=== PATIENT | male | born 1995 | race African-American/Black ===

== ENCOUNTER 2017-12-25 16:14 | Emergency (ER) | payer SELFPAY | END 2017-12-25 16:50 | disposition home or self-care (01) | LOC: ERS 16:14 | DX: K02.9 Dental caries, unspecified (principal); Z71.6 Tobacco abuse counseling; F17.210 Nicotine dependence, cigarettes, uncomplicated; F31.9 Bipolar disorder, unspecified; F41.9 Anxiety disorder, unspecified | CPT/HCPCS: 99406 ==

== ENCOUNTER 2018-09-20 16:09 | Emergency (ER) | payer SELFPAY ==
[2018-09-20] MEDS ORDERED: Morphine 4 MG/ML VIAL ONE (16:25)
[2018-09-20] MEDS ORDERED: Ondansetron PF 4 MG/2 ML Vial ONE (16:25)
[2018-09-20] MEDS ORDERED: KETAMINE 100 MG/ML (5ML VIAL) ONE (16:30)
[2018-09-20] MEDS ORDERED: CEFAZOLIN 2 GM/50 ML BAG ONE (17:05)
[2018-09-20] MEDS ORDERED: Ketorolac Tromethamine 30 MG/ML VIAL ONE (18:33)
[2018-09-20] MEDS ORDERED: Bacitracin Zinc 1 Packet ONE (18:45)
[2018-09-20] MEDS ORDERED: Adacel (T-DAP) 0.5 ML SYRINGE ONE (19:40)
--- NOTE | 2018-09-20 20:21 | RAD ---
RIGHT HUMERUS TWO VIEWS: 09/20/18 HISTORY: Right humeral injury following a dog bite. There is some soft tissue gas in the volar and inner aspect of the upper arm and at the level of the elbow. No fracture or dislocation. No overt foreign body. IMPRESSION: Soft tissue injury without fracture or dislocation. POS: [facility]
--- NOTE | 2018-09-20 20:23 | RAD ---
RIGHT FOREARM TWO VIEWS: 09/20/18 HISTORY: Right forearm injury following a dog bite. There is soft tissue gas and swelling and evidence for soft tissue injury involving the arm and forea rm. No acute fracture or dislocation. No opaque foreign body. IMPRESSION: Soft tissue injury without fracture or dislocation. POS: [facility]
== END 2018-09-20 20:54 | disposition home or self-care (01) ==
LOC: ERS 16:09
DX: S01.451A Open bite of right cheek and temporomandibular area, initial encounter (principal); S01.551A Open bite of lip, initial encounter; S31.159A Open bite of abdominal wall, unspecified quadrant without penetration into peritoneal cavity, initial encounter; S41.151A Open bite of right upper arm, initial encounter; S51.851A Open bite of right forearm, initial encounter; S01.411A Laceration without foreign body of right cheek and temporomandibular area, initial encounter; S01.511A Laceration without foreign body of lip, initial encounter; S51.811A Laceration without foreign body of right forearm, initial encounter; S41.111A Laceration without foreign body of right upper arm, initial encounter; S31.119A Laceration without foreign body of abdominal wall, unspecified quadrant without penetration into peritoneal cavity, initial encounter; F31.9 Bipolar disorder, unspecified; F17.210 Nicotine dependence, cigarettes, uncomplicated; F41.9 Anxiety disorder, unspecified; W54.0XXA Bitten by dog, initial encounter
CPT/HCPCS: 12005; 12013; 40650; 90471; 90715; 94760; 96361; 96374; 96375; 99152; 99153; J1885; J2270; J2405

== ENCOUNTER 2018-09-29 14:45 | Emergency (ER) | payer SELFPAY | END 2018-09-29 15:19 | disposition home or self-care (01) | LOC: ERS 14:45 | DX: S01.411D Laceration without foreign body of right cheek and temporomandibular area, subsequent encounter (principal); F31.9 Bipolar disorder, unspecified; F41.9 Anxiety disorder, unspecified; F17.210 Nicotine dependence, cigarettes, uncomplicated ==

== ENCOUNTER 2018-10-02 15:13 | Emergency (ER) | payer SELFPAY ==
[2018-10-02] MEDS ORDERED: Bacitracin Zinc 1 Packet ONE (16:06)
== END 2018-10-02 16:12 | disposition home or self-care (01) ==
LOC: ERS 15:13
DX: S41.111D Laceration without foreign body of right upper arm, subsequent encounter (principal); F41.9 Anxiety disorder, unspecified; F17.210 Nicotine dependence, cigarettes, uncomplicated; W54.0XXD Bitten by dog, subsequent encounter